=== PATIENT | male | born 1995 | race Caucasian/White ===

== ENCOUNTER → 2022-09-10 | Day surgery (SDC) | payer BC ==
[~2022-09-10] MED LIST: FENTANYL CITRATE/PF 100MCG/2 ML INJ ONE; LACTATED RINGER'S 1,000 ML ONE; LIDOCAINE HCL 2% LOCAL INJ 5 ML SDV VIAL INJ ONE; MIDAZOLAM HCL 5 MG/ML VIAL ONE; MULTIVITAMIN PO; PROPOFOL IV EMULSION 10 MG/ML 50 ML VIAL IV ONE; TRUVADA 200 MG1 EACH PO; TRUVADA PO; [UNRECOGNIZED DRUG - OTHER]
[2022-09-10 12:46] LABS: BASOPHILS % 0.7 % (0.0-1.0); EOSINOPHILS # (AUTO) 0.4 (0.0-0.4); HEMATOCRIT 46.1 % (38.2-49.6); HEMOGLOBIN 16.6 g/dL (14.0-18.0); LYMPHOCYTES # (AUTO) 1.9 (1.0-3.2); MEAN CORPUSCULAR HEMOGLOBIN 30.7 pg (28-32); MEAN CORPUSCULAR VOLUME 85.4 fL (81-99); MONOCYTES # (AUTO) 0.5 (0.2-0.8); MONOCYTES % 8.3 % (4.4-11.3); NEUTROPHILS # (AUTO) 3.2 (2.1-6.9); NEUTROPHILS % 52.8 % (38.7-80.0); PLATELET COUNT 189 x10e3/uL (140-360); RED CELL DISTRIBUTION WIDTH 12.8 % (11.7-14.4)
[2022-09-10 15:30] VITALS: BP 130/72; PULSE 68; RESP 16; O2SAT 97
== END | disposition home or self-care (01) ==
LOC: ENDO 11:45
PROVIDERS: ATTEND Internal Medicine Gastroenterology
DX: K20.0 Eosinophilic esophagitis (principal); K29.70 Gastritis, unspecified, without bleeding; Z71.3 Dietary counseling and surveillance; R05.9 Cough, unspecified; R03.0 Elevated blood-pressure reading, without diagnosis of hypertension; Z71.89 Other specified counseling; F41.9 Anxiety disorder, unspecified; Z79.899 Other long term (current) drug therapy; Z68.31 Body mass index [BMI] 31.0-31.9, adult; Z87.891 Personal history of nicotine dependence
CPT/HCPCS: 36415; 43239; 43450; 85025; C9113; J2001; J2250; J2704; J3010; J7121